=== PATIENT | female | born 1985 | race African-American/Black ===

== ENCOUNTER 2023-02-07 21:17 | Emergency (ER) | payer OTHER ==
[~2023-02-07] VITALS: Ht 165.1 cm; Wt 104.5 kg
[2023-02-07 21:37] VITALS: TEMP 98.4
[2023-02-07] MEDS ORDERED: TRAZ-257 PO (21:41)
[2023-02-07] MEDS ORDERED: LAMO-24 PO (21:41)
[2023-02-07] MEDS ORDERED: QUET100T PO (21:41)
[2023-02-07] MEDS ORDERED: LIDOCAINE 5% TRANSDERMAL PATCH TD ONE (23:45)
[2023-02-07] MEDS ORDERED: KETOROLAC TROMETHAMINE 30 MG/ML VIAL IM ONE (23:45)
[2023-02-08] MEDS ORDERED: TRAM-559 PO (00:18)
[2023-02-08] MEDS ORDERED: LIDO700A15 TP (00:18)
[2023-02-08 00:22] VITALS: BP 126/84; PULSE 78; RESP 18
== END 2023-02-08 00:27 | disposition home or self-care (01) ==
LOC: EMS 21:18
DX: G89.29 Other chronic pain (principal); M25.512 Pain in left shoulder; F17.210 Nicotine dependence, cigarettes, uncomplicated; F12.90 Cannabis use, unspecified, uncomplicated
CPT/HCPCS: 99283; 96372; J1885